=== PATIENT | male | born 1970 | race Caucasian/White ===

== ENCOUNTER 2020-09-14 20:52 | Emergency (ER) | payer SELFPAY ==
[2020-09-14] MEDS ORDERED: HYDROmorphone 0.5 MG/0.5 ML SYRINGE ONE ×2 (21:05→22:41)
[2020-09-14] MEDS ORDERED: Ketorolac Tromethamine 30 MG/ML VIAL ONE (21:05)
--- NOTE | 2020-09-14 21:40 | CT ---
CT ABDOMEN AND PELVIS WITHOUT CONTRAST: 09/14/[address] of the abdomen and pelvis was done for evaluation of flank pain and reported hematuria. The re is apparently a prior history of kidney stones. Today's exam does not show any evidence of renal or ureteral calculi. There is no hydronephrosis at a ll, and neither ureter is dilated like one might expect with a recently passed stone. No stones were appreciated within the urinary bladder. The lung bases are clear. The liver, spleen, pancreas, adrenal glands, and abdominal aorta appear nor mal within the limitations of a noncontrast study. There has been a prior cholecystectomy. The bowel is normal in appearance with no dilation or wall thickening. The appendix is identified and appears normal. CT of the pelvis shows no pelvic masses, inflammatory changes or fluid collections. A minimal fat f illed inguinal hernia is seen on the left. IMPRESSION: No evidence of urinary tract calculi or obstruction to explain the patient's symptoms. Findings discussed with Renee at 2129 on 09/14/20. POS: HOME
[2020-09-14 21:45] LABS: Hemoglobin 14.4 g/dL (14.0-18.0); Lymphocytes 14 % (21-51); MDiff Complete? YES; Mean Corpuscular HGB CONC 32.9 g/dL (32.0-36.0); Mean Corpuscular Hemoglobin 31.3 pg (27.0-31.0); Mean Corpuscular Volume 95.1 fL (78.0-98.0); Mean Platelet Volume 7.7 fL (7.4-10.4); Monocytes 5 % (0-10); Neutrophil 81 % (42-75); Platelet Count 373 thou/uL (130-400); Platelet Morphology Comment Appears Adequate; RBC Distribution Width 12.1 % (11.5-14.5); RBC Morphology Normal; Red Blood Cell (RBC) Count 4.59 mill/uL (4.70-6.10); White Blood Cell (WBC) Count 22.4 thou/uL (4.8-10.8)
[2020-09-14 21:47] LABS: ALT (SGPT) 28 U/L (8-55); AST (SGOT) 16 U/L (5-34); Albumin 4.8 g/dL (3.5-5.0); Alkaline Phosphatase 72 U/L (40-110); Anion Gap 19 mmol/L (10-20); BUN (Urea Nitrogen) 18 mg/dL (8.9-20.6); Bilirubin, Total 0.3 mg/dL (0.2-1.2); Calc. Creatinine Clearance 0 mL/min (70-130); Calcium 9.6 mg/dL (7.8-10.44); Carbon Dioxide 15 mmol/L (22-29); Chloride 112 mmol/L (98-107); Estimated GFR-MDRD 71; Globulin 3.6 g/dL (2.4-3.5); Glucose 247 mg/dL (70-105); Potassium 3.4 mmol/L (3.5-5.1); Protein, Total 8.4 g/dL (6.0-8.3); Sodium 143 mmol/L (136-145)
[2020-09-14] MEDS ORDERED: cefTRIAXone\\ROCEPHIN 2 GM VIAL ONE (22:37)
[2020-09-14] MEDS ORDERED: Ondansetron PF 4 MG/2 ML Vial ONE (22:41)
[2020-09-14 22:45] LABS: Bilirubin Negative (Negative); Blood, Urine Large (Negative); Clarity Cloudy (Clear); Glucose, Urine (Dipstick) 100 mg/dL (Negative); Ketone, Urine Trace mg/dL (Negative); Leukocyte Negative (Negative); Nitrite Negative (Negative); Protein, Urine (Dipstick) 30 mg/dL (Neg-Trace); Urobilinogen 0.2 mg/dL (Less than 2); pH, Urine 5.5 (5.0-9.0)
[2020-09-14 22:49] LABS: Specific Gravity, Urine 1.034 (1.002-1.036)
[2020-09-14 22:51] LABS: Bacteria/HPF Rare-Few HPF (None Seen); Mucous/LPF 2+ LPF (<2+); RBC/HPF Greater than 50 HPF (0-3); Squamous Epithelial 0-3 HPF (0-3); WBC/HPF 0-3 HPF (0-3)
[2020-09-15 00:15] LABS: CKMB 1.3 ng/mL (0-6.6)
[2020-09-15] MEDS ORDERED: HYDROmorphone 0.5 MG/0.5 ML SYRINGE ONE (00:16)
== END 2020-09-15 00:57 | disposition short-term general hospital (02) ==
LOC: BURERS 20:52
DX: A41.9 Sepsis, unspecified organism (principal); R73.09 Other abnormal glucose; R10.9 Unspecified abdominal pain; I10 Essential (primary) hypertension; E78.00 Pure hypercholesterolemia, unspecified; I25.2 Old myocardial infarction; M54.5 Low back pain; D72.829 Elevated white blood cell count, unspecified
CPT/HCPCS: 74176; 80053; 81003; 81015; 82553; 83605; 84484; 85025; 87040; 93005; 96365; 96366; 96367; 96374; 96375; 96376; J0696; J1170; J1885; J2405; J3370

== ENCOUNTER 2020-10-19 20:19 | Emergency (ER) | payer OTHER, SELFPAY ==
[2020-10-19] MEDS ORDERED: Ketorolac Tromethamine 30 MG/ML VIAL ONE ×2 (20:40→22:35)
[2020-10-19 20:57] LABS: #Basophils 0.1 thou/uL (0.0-0.2); #Eosinphils 0.2 thou/uL (0.0-0.7); #Lymphocytes 2.4 thou/uL (1.20-3.40); #Monocytes 0.8 thou/uL (0.11-0.59); #Neutrophils 8.6 thou/uL (1.40-6.50); %Eosinophils 1.6 % (0.0-10.0); %Monocytes 6.4 % (0.0-10.0); Hemoglobin 15.9 g/dL (14.0-18.0); Mean Corpuscular HGB CONC 34.1 g/dL (32.0-36.0); Mean Platelet Volume 8.2 fL (7.4-10.4); Platelet Count 313 thou/uL (130-400); RBC Distribution Width 11.7 % (11.5-14.5); Red Blood Cell (RBC) Count 4.96 mill/uL (4.70-6.10); White Blood Cell (WBC) Count 12.1 thou/uL (4.8-10.8)
[2020-10-19 21:00] LABS: Bilirubin Negative (Negative); Blood, Urine Large (Negative); Glucose, Urine (Dipstick) 250 mg/dL (Negative); Ketone, Urine Negative (Negative); Leukocyte Negative (Negative); Nitrite Negative (Negative); Protein, Urine (Dipstick) Negative (Neg-Trace); Urobilinogen 0.2 mg/dL (Less than 2); pH, Urine 5.5 (5.0-9.0)
[2020-10-19 21:02] LABS: Bacteria/HPF None Seen HPF (None Seen); Clarity Hazy (Clear); RBC/HPF 21-50 HPF (0-3); Squamous Epithelial 0-3 HPF (0-3); WBC/HPF None Seen HPF (0-3)
[2020-10-19 21:08] LABS: ALT (SGPT) 35 U/L (8-55); AST (SGOT) 20 U/L (5-34); Albumin 4.5 g/dL (3.5-5.0); Alkaline Phosphatase 73 U/L (40-110); Anion Gap 17 mmol/L (10-20); BUN (Urea Nitrogen) 13 mg/dL (8.9-20.6); Bilirubin, Total 0.3 mg/dL (0.2-1.2); Calc. Creatinine Clearance 0 mL/min (70-130); Calcium 9.6 mg/dL (7.8-10.44); Carbon Dioxide 20 mmol/L (22-29); Chloride 107 mmol/L (98-107); Estimated GFR-MDRD 90; Globulin 3.2 g/dL (2.4-3.5); Glucose 235 mg/dL (70-105); Potassium 3.2 mmol/L (3.5-5.1); Protein, Total 7.7 g/dL (6.0-8.3); Sodium 141 mmol/L (136-145)
--- NOTE | 2020-10-19 21:10 | CT ---
CT ABDOMEN NONCONTRAST CT PELVIS NONCONTRAST: (Urolithiasis protocol) DATE: 10/19/2020 HISTORY: 50-year-old male with right flank and right groin pain. TECHNIQUE: IV injection of iodinated contrast media: None Oral contrast media: None FINDINGS: Other than for urolithiasis, the lack of IV and oral contrast limits the evaluation. Liver: No contour abnormalities. Spleen: No splenomegaly. Pancreas: No contour abnormalities. Adrenals: No mass. Kidneys: No nephrolithiasis or overt hydronephrosis. Ureters: No calculi. Bladder: No calculi. Abdominal aorta: No aneurysm. Small bowel: No dilation. Colon: No signs of colonic diverticulitis. Appendix: Normal. Free air: None Free fluid: None Lumbar spine: No compression fracture. Mild lumbar spondylosis. No bowel containing inguinal or ventral hernia. There are probably small fat-containing bilateral inguinal hernias. IMPRESSION: 1. No acute findings. 2. No urolithiasis or obstructive uropathy. 3. Status post cholecystectomy.
[2020-10-19 21:15] LABS: Acetaminophen Less than 6.0 mcg/mL (10.0-30.0); Alcohol Less than 10 mg/dL (Less than 10); Salicylate Less than 8.0 mg/dL (15.0-30.0)
== END 2020-10-19 22:40 | disposition home or self-care (01) ==
LOC: BURERS 20:19
DX: E86.0 Dehydration (principal); R10.31 Right lower quadrant pain; R31.9 Hematuria, unspecified; I10 Essential (primary) hypertension; E78.00 Pure hypercholesterolemia, unspecified; F43.10 Post-traumatic stress disorder, unspecified; F17.210 Nicotine dependence, cigarettes, uncomplicated; Z79.899 Other long term (current) drug therapy
CPT/HCPCS: 36415; 74176; 80053; 80307; 81003; 81015; 83605; 85025; 96374; 96376; J1885